=== PATIENT | female | born 1955 | race Hispanic/Latino ===

== ENCOUNTER 2018-10-16 18:45 | Emergency (ER) | payer OTHER ==
[~2018-10-16 18:45] MED LIST: DOCU-116 PO; NITR100C PO; OMEP40CA37 PO; PROM25TA7 PO; TYL3B PO
[2018-10-16] MEDS ORDERED: ACETAMINOPHEN EXTRA STRENGTH 500 MG TABLET ONE (19:34)
[2018-10-16] MEDS ORDERED: KETOROLAC TROMETHAMINE 60 MG/2 ML VIAL ONE (19:34)
== END 2018-10-16 20:06 | disposition home or self-care (01) ==
LOC: EDH 18:45
DX: M17.12 Unilateral primary osteoarthritis, left knee (principal); Z90.49 Acquired absence of other specified parts of digestive tract
CPT/HCPCS: 73562; 93971; 96372; 99284; J1885

== ENCOUNTER 2021-06-25 11:18 | Inpatient (IN) | payer OTHER ==
[~2021-06-25] VITALS: Ht 165.1 cm; Wt 74.8 kg
[~2021-06-25 11:18] MED LIST changes: +OMEP40CA21 PO; -OMEP40CA37 PO
[2021-06-25 12:21] LABS: BASOPHILS % (AUTO) 0.9 % (0.0-5.0); EOSINOPHILS % (AUTO) 3.6 % (0.0-8.0); HEMATOCRIT 41.9 % (36-48); MEAN CORPUSCULAR HEMOGLOBIN 29.1 pg (27.0-33.0); MEAN CORPUSCULAR HGB CONC 32.5 g/dL (32.0-36.0); MEAN CORPUSCULAR VOLUME 89.5 fL (79-99); NEUTROPHILS % (AUTO) 62.3 % (40.0-77.0); PLATELET COUNT (AUTO) 264 K/uL (130-400); RED BLOOD CELL COUNT(AUTO) 4.68 MIL/uL (4.00-5.50); RED CELL DISTRIBUTION WIDTH 12.6 % (11.0-15.5); WHITE BLOOD COUNT (AUTO) 5.3 K/uL (4.8-10.8)
[2021-06-25 12:28] LABS: CREATININE 0.7 mg/dL (0.5-1.5); POTASSIUM 3.6 mmol/L (3.5-5.1)
[2021-06-25] MEDS ORDERED: NITROGLYCERIN 0.4 MG SL TAB SL PRN (12:30)
[2021-06-25] MEDS ORDERED: ASPIRIN 325MG TAB PO ONE (12:30)
[2021-06-25] MEDS ORDERED: NITROGLYCERIN 1GM OINT 1 INCH/1GM TD ONE (12:30)
[2021-06-25 12:33] LABS: ALBUMIN 3.9 g/dL (3.5-5.0); BILIRUBIN,TOTAL 1.3 mg/dL (0.2-1.0); TOTAL PROTEIN, SERUM 7.7 g/dL (6.0-8.3)
[2021-06-25 12:41] LABS: B-TYPE NATRIURETIC PEPTIDE 13 pg/mL (0-100)
[2021-06-25] MEDS ORDERED: ONDANSETRON 4MG INJ IVP PRN (15:00)
[2021-06-25] MEDS ORDERED: MORPHINE 2 MG SYG IVP PRN (15:00)
[2021-06-25] MEDS ORDERED: ACETAMINOPHEN 325 MG TAB PO PRN (15:00)
[2021-06-25 15:20] LABS: HEMOGLOBIN A1C 6.1 % (4.0-6.0)
[2021-06-25 15:30] LABS: CHOLESTEROL 173 mg/dL (<200); HDL CHOLESTEROL 52 mg/dL (35-85); LDL DIRECT 101 mg/dL (0-99); TRIGLYCERIDES 88 mg/dL (30-200)
[2021-06-25] MEDS: LACTATED RINGERS 1000ML 1,000 ML IV SCH (15:47)
[2021-06-25] MEDS ORDERED: MECL-160 PO (15:56)
[2021-06-25] MEDS ORDERED: ATOR40TA69 PO (15:56)
[2021-06-25] MEDS ORDERED: NAPR-1023 PO (15:56)
[2021-06-25] MEDS: FAMOTIDINE 20MG VIAL IV SCH (20:36)
[2021-06-25] MEDS: ATORVASTATIN 40 MG TABLET PO SCH (20:36)
[2021-06-25 22:46] LABS: APPEARANCE,URINE Clear (CLEAR); BILIRUBIN,URINE Small (NEGATIVE); COLOR,URINE Dark Yellow (YELLOW); GLUCOSE, URINE (UA) Negative (NEGATIVE); KETONES,URINE 40 mg/dL (NEGATIVE); LEUKOCYTE ESTERASE ,URINE Small (NEGATIVE); NITRATE,URINE Negative (NEGATIVE); OCCULT BLOOD,URINE Negative (NEGATIVE); PH,URINE 5.5 (5.0-8.0); PROTEIN,URINE Negative (NEGATIVE)
[2021-06-25 23:15] LABS: RBC,URINE 0-1 /HPF (0-1)
[2021-06-25 23:16] LABS: BACTERIA,URINE Few /HPF (None Seen); MUCUS,URINE Moderate LPF (None Seen)
[2021-06-26] MEDS: LACTATED RINGERS 1000ML 1,000 ML IV SCH ×3 (01:47→21:09)
[2021-06-26 07:09] LABS: HEMATOCRIT 37.9 % (36-48); MEAN CORPUSCULAR HGB CONC 32.2 g/dL (32.0-36.0); RED BLOOD CELL COUNT(AUTO) 4.21 MIL/uL (4.00-5.50); RED CELL DISTRIBUTION WIDTH 12.5 % (11.0-15.5); WHITE BLOOD COUNT (AUTO) 4.9 K/uL (4.8-10.8)
[2021-06-26 07:17] LABS: CREATININE 0.7 mg/dL (0.5-1.5); POTASSIUM 4.1 mmol/L (3.5-5.1)
[2021-06-26] MEDS: FAMOTIDINE 20MG VIAL IV SCH ×2 (09:00→21:09)
[2021-06-26] MEDS: NITROGLYCERIN PATCH 0.2 MG/HR TD SCH (09:00)
[2021-06-26] MEDS: ENOXAPARIN SODIUM 30 MG/0.3 ML SQ SCH (09:00)
[2021-06-26] MEDS: ASPIRIN 81 MG EC TAB PO SCH (09:00)
[2021-06-26 09:47] VITALS: BP 115/71
[2021-06-26 11:26] VITALS: BP 123/72
[2021-06-26 16:00] VITALS: BP 137/77
[2021-06-26] MEDS: ZOSYN 3.375GM +NS 50ML IV SCH ×2 (17:04→21:09)
[2021-06-26 19:59] VITALS: BP 116/66
[2021-06-26] MEDS: ATORVASTATIN 40 MG TABLET PO SCH (21:09)
[2021-06-26 23:53] VITALS: BP 133/69
[2021-06-27] VITALS (21 sets, daily range): BP systolic 111–153; BP diastolic 54–91
[2021-06-27] MEDS: ZOSYN 3.375GM +NS 50ML IV SCH ×3 (05:07→21:24)
[2021-06-27 05:29] LABS: HEMATOCRIT 35.8 % (36-48); MEAN CORPUSCULAR HEMOGLOBIN 29.1 pg (27.0-33.0); MEAN CORPUSCULAR HGB CONC 32.4 g/dL (32.0-36.0); MEAN CORPUSCULAR VOLUME 89.7 fL (79-99); RED BLOOD CELL COUNT(AUTO) 3.99 MIL/uL (4.00-5.50); RED CELL DISTRIBUTION WIDTH 12.3 % (11.0-15.5); WHITE BLOOD COUNT (AUTO) 4.8 K/uL (4.8-10.8)
[2021-06-27 05:40] LABS: CREATININE 0.7 mg/dL (0.5-1.5); POTASSIUM 3.6 mmol/L (3.5-5.1)
[2021-06-27] MEDS: LACTATED RINGERS 1000ML 1,000 ML IV SCH ×2 (07:47→17:35)
[2021-06-27 08:29] LABS: ALBUMIN 3.3 g/dL (3.5-5.0); BILIRUBIN,DIRECT 0.3 mg/dL (0.0-0.3); TOTAL PROTEIN, SERUM 7.1 g/dL (6.0-8.3)
[2021-06-27] MEDS: NITROGLYCERIN PATCH 0.2 MG/HR TD SCH (09:00)
[2021-06-27 09:13] LABS: HEPATITIS B CORE IGM Negative (Negative); HEPATITIS Bs ANTIGEN SCREEN P Negative (Negative)
[2021-06-27] MEDS ORDERED: PROPOFOL 10 MG/ML 20ML VIAL IV ONE ×2 (11:11→12:14)
[2021-06-27] MEDS ORDERED: SUCCINYLCHOLINE 200MG/10ML SYR ONE (11:13)
[2021-06-27] MEDS ORDERED: IOHEXOL-350 50ML VIAL IV ONE (11:15)
[2021-06-27] MEDS: FAMOTIDINE 20MG VIAL IV SCH ×2 (13:26→21:24)
[2021-06-27] MEDS: ASPIRIN 81 MG EC TAB PO SCH (13:26)
[2021-06-27] MEDS: ENOXAPARIN SODIUM 30 MG/0.3 ML SQ SCH (13:27)
[2021-06-27] MEDS: ATORVASTATIN 40 MG TABLET PO SCH (21:24)
[2021-06-28] VITALS: BP 112/51
[2021-06-28 04:00] VITALS: BP 103/57
[2021-06-28] MEDS: ZOSYN 3.375GM +NS 50ML IV SCH (04:35)
[2021-06-28] MEDS: LACTATED RINGERS 1000ML 1,000 ML IV SCH (04:37)
[2021-06-28 06:00] LABS: BASOPHILS % (AUTO) 0.8 % (0.0-5.0); EOSINOPHILS % (AUTO) 3.3 % (0.0-8.0); HEMATOCRIT 35.4 % (36-48); LYMPHOCYTES % (AUTO) 36.2 % (21.0-51.0); MEAN CORPUSCULAR HEMOGLOBIN 29.4 pg (27.0-33.0); MEAN CORPUSCULAR HGB CONC 32.8 g/dL (32.0-36.0); MEAN CORPUSCULAR VOLUME 89.6 fL (79-99); MONOCYTES % (AUTO) 10.5 % (3.0-13.0); PLATELET COUNT (AUTO) 251 K/uL (130-400); RED BLOOD CELL COUNT(AUTO) 3.95 MIL/uL (4.00-5.50); RED CELL DISTRIBUTION WIDTH 12.2 % (11.0-15.5); WHITE BLOOD COUNT (AUTO) 4.9 K/uL (4.8-10.8)
[2021-06-28 06:17] LABS: ALBUMIN 3.1 g/dL (3.5-5.0); BILIRUBIN,TOTAL 0.9 mg/dL (0.2-1.0); CREATININE 0.8 mg/dL (0.5-1.5); POTASSIUM 3.7 mmol/L (3.5-5.1); TOTAL PROTEIN, SERUM 6.9 g/dL (6.0-8.3)
[2021-06-28 08:00] VITALS: BP 137/65
[2021-06-28] MEDS: NITROGLYCERIN PATCH 0.2 MG/HR TD SCH (09:00)
[2021-06-28] MEDS: ASPIRIN 81 MG EC TAB PO SCH (09:41)
[2021-06-28] MEDS: FAMOTIDINE 20MG VIAL IV SCH (09:41)
[2021-06-28 11:06] VITALS: BP 112/61
[2021-06-28 15:25] VITALS: BP 119/64
== END 2021-06-28 18:30 | disposition home or self-care (01) | DRG 445 ==
LOC: EDH 11:18 → UNDOADMIN 14:30 → EDHIP 14:30 → 3BH 06-26 08:29 → EDHIP 06-26 08:29
PROVIDERS: ADMIT Internal Medicine; ATTEND Internal Medicine
PROC: 0FC98ZZ Extirpation of Matter from Common Bile Duct, Via Natural or Artificial Opening Endoscopic (ICD-10-PCS; principal; 2021-06-27)
DX: K80.50 Calculus of bile duct without cholangitis or cholecystitis without obstruction (principal); B17.9 Acute viral hepatitis, unspecified; K43.9 Ventral hernia without obstruction or gangrene; E78.5 Hyperlipidemia, unspecified; I10 Essential (primary) hypertension; K57.90 Diverticulosis of intestine, part unspecified, without perforation or abscess without bleeding; R74.8 Abnormal levels of other serum enzymes; R93.2 Abnormal findings on diagnostic imaging of liver and biliary tract; E78.00 Pure hypercholesterolemia, unspecified; Z90.49 Acquired absence of other specified parts of digestive tract; Z83.3 Family history of diabetes mellitus; Z82.5 Family history of asthma and other chronic lower respiratory diseases; Z82.49 Family history of ischemic heart disease and other diseases of the circulatory system; Z82.3 Family history of stroke; Z82.0 Family history of epilepsy and other diseases of the nervous system
CPT/HCPCS: 36415; 43262; 43264; 70450; 71045; 74176; 74181; 74330; 80048; 80053; 80061; 80074; 80076; 81001; 82550; 83036; 83690; 83880; 84443; 84484; 85025; 85027; 93005; 93306; C1769; C1773; G0378; J0330; J1650; J2543; J2704; J3490; J7120; Q9967